=== PATIENT | male | born 1970 | race Caucasian/White ===

== ENCOUNTER → 2017-05-09 10:05 | Outpatient (CLI) | payer OTHER, SELFPAY ==
[2017-05-09 12:31] LABS: ALB/GLOB Ratio 0.7 RATIO (0.9-2.4); AST(SGOT) 16 U/L (15-37); Alanine Aminotransfer ALT/SGPT 21 U/L (12-78); Albumin, Serum 3.3 g/dL (3.4-5.0); Alkaline Phosphatase 69 U/L (45-117); Anion Gap 9 (5-15); BUN 16 mg/dL (7-18); Calcium,Total 8.7 mg/dL (8.5-10.1); Chloride 101 mmol/L (98-107); Cholesterol 150 mg/dL (200); Creatinine, Serum 1.07 mg/dL (0.70-1.30); EST Glomerular Filtration Rate 78 mL/min (>60); Est Glom Filt Rate - Afr Amer 95 mL/min (>60); Globulin 4.6 g/dL (2.2-4.2); Glucose 88 mg/dL (70-110); High Density Lipoprotein 43 mg/dL; Protein, Total 7.9 g/dL (6.4-8.2); Sodium Level 136 mmol/L (136-145); Triglycerides 113 mg/dL; Very Low Density Lipoprotein 23 mg/dL (5-40)
[2017-05-09 12:37] LABS: Absolute Neutrophil Count 11.2 X10^3/uL (2.0-7.7); Basophil# 0.04 X10^3/uL; Basophil% 0.3 % (0-1); Eosinophil# 0.17 X10^3/uL; Eosinophils% 1.2 % (0-5); Hematocrit 41.3 % (40-54); Lymphocyte % 11.4 % (19-41); Mean Corp Hgb Conc 31.5 g/gl (32-36); Mean Corpuscular Hgb 27.5 pg (27.0-32.0); Mean Corpuscular Volume 87.5 fL (80-94); Mean Platelet Vol. 9.7 fl (6.2-12.0); Monocyte# 0.76 X10^3/uL; Monocyte% 5.4 % (0-10); Neutrophil # 11.18 X10^3/uL (2.7-7.7); Neutrophil % 79.4 % (47-70); Platelet Count 447 K/mm3 (150-450); RBC Distribution Width CV 15.5 % (11.6-14.6); RBC Distribution Width SD 49.2 fl (35.1-43.9); Red Blood Count 4.72 M/mm3 (4.6-6.2); White Blood Count 14.1 K/mm3 (4.4-11.0)
[2017-05-09 12:40] LABS: Differential Indicated SCAN CRITERIA MET; POSITIVE COUNT YES; POSITIVE DIFFERENTIAL NO; POSITIVE MORPHOLOGY YES
[2017-05-09 15:33] LABS: Pathologist Review Reviewed
== END ==
PROVIDERS: Family Provider Physician Assistant; PCP Physician Assistant; Visit Provider Internal Medicine Rheumatology
DX: M06.89 Other specified rheumatoid arthritis, multiple sites (principal); G56.01 Carpal tunnel syndrome, right upper limb; M21.40 Flat foot [pes planus] (acquired), unspecified foot; K21.9 Gastro-esophageal reflux disease without esophagitis; E11.9 Type 2 diabetes mellitus without complications; Z79.899 Other long term (current) drug therapy
CPT/HCPCS: 36415; 80053; 80061; 85025

== ENCOUNTER → 2017-08-05 09:38 | Outpatient (CLI) | payer OTHER, SELFPAY ==
[2017-08-05 12:18] LABS: ALB/GLOB Ratio 0.7 RATIO (0.9-2.4); AST(SGOT) 14 U/L (15-37); Alanine Aminotransfer ALT/SGPT 17 U/L (16-61); Albumin, Serum 3.1 g/dL (3.2-5.0); Alkaline Phosphatase 60 U/L (45-117); Anion Gap 7 (5-15); BUN 10 mg/dL (7-18); Calcium,Total 8.9 mg/dL (8.5-10.1); Chloride 104 mmol/L (98-107); Cholesterol 118 mg/dL (200); Creatinine, Serum 0.91 mg/dL (0.70-1.30); EST Glomerular Filtration Rate 94 mL/min (>60); Est Glom Filt Rate - Afr Amer 114 mL/min (>60); Globulin 4.5 g/dL (2.2-4.2); Glucose 97 mg/dL (74-106); High Density Lipoprotein 38 mg/dL; Potassium 3.8 mmol/L (3.5-5.1); Protein, Total 7.6 g/dL (6.4-8.2); Sodium Level 140 mmol/L (136-145); Triglycerides 102 mg/dL; Very Low Density Lipoprotein 20 mg/dL (5-40)
[2017-08-05 12:24] LABS: Hematocrit 40.3 % (40-54); Hemoglobin 12.6 g/dl (13.0-16.5); Mean Corp Hgb Conc 31.3 g/gl (32-36); Mean Corpuscular Hgb 27.6 pg (27.0-32.0); Mean Corpuscular Volume 88.4 fL (80-94); Mean Platelet Vol. 9.7 fl (6.2-12.0); Platelet Count 492 K/mm3 (150-450); RBC Distribution Width CV 15.3 % (11.6-14.6); RBC Distribution Width SD 49.1 fl (35.1-43.9); Red Blood Count 4.56 M/mm3 (4.6-6.2)
[2017-08-05 12:28] LABS: Differential Indicated MANUAL DIFF; POSITIVE COUNT YES; POSITIVE DIFFERENTIAL NO; POSITIVE MORPHOLOGY YES
[2017-08-05 13:34] LABS: Eosinophil 2 % (0-5); Lymphocyte 13 % (19-41); Monocyte 3 % (0-10); Neutrophil-Segmented 80 % (47-70); Platelet Estimate SLT INC (ADEQ); Promyelocyte 2 (0-0); Red Cell Morphology NORM C+C NORMAL (NORM C&C); Total Cells Counted 100 (MANUAL DIFF)
[2017-08-05 13:35] LABS: Absolute Neutrophil Count 10.4 X10^3/uL (2.0-7.7)
[2017-08-05 13:36] LABS: Absolute Lymphocyte Count 1.69 X10^3/ul (0.83-4.51)
[2017-08-06 09:34] LABS: Pathologist Review Reviewed
== END ==
PROVIDERS: Visit Provider Internal Medicine Rheumatology
DX: M06.09 Rheumatoid arthritis without rheumatoid factor, multiple sites (principal); G56.01 Carpal tunnel syndrome, right upper limb; M21.40 Flat foot [pes planus] (acquired), unspecified foot; K21.9 Gastro-esophageal reflux disease without esophagitis; E11.9 Type 2 diabetes mellitus without complications; Z79.899 Other long term (current) drug therapy
CPT/HCPCS: 36415; 80053; 80061; 85025

== ENCOUNTER → 2017-10-07 10:34 | Outpatient (CLI) | payer OTHER, SELFPAY ==
--- NOTE | 2017-10-07 10:37 | RAD_ITS ---
STUDY: X-RAY - RIGHT WRIST REASON FOR EXAM: Wrist pain near thumb for 5 days, no specific injury. TECHNIQUE: 3 view(s) of the wrist were obtained. COMPARISON: None. FINDINGS: Normal visualized distal radius and ulna. Normal radiocarpal articulation. Normal distal radioulnar articulation. Normal carpal bones. Normal carpal articulations. Normal carpometacarpal articulation of the thumb. Normal second through fifth carpometacarpal articulations. Normal visualized metacarpal bones. The soft tissue structures are unremarkable. RAD/Wrist min 3 Views IMPRESSION: Normal x-ray examination of the right wrist. Electronically Signed: Jt Tang MD at 11:17 EDT Tel , Service support ,
== END ==
PROVIDERS: Visit Provider Physician Assistant Surgical
DX: S66.911A Strain of unspecified muscle, fascia and tendon at wrist and hand level, right hand, initial encounter (principal); X58.XXXA Exposure to other specified factors, initial encounter
CPT/HCPCS: 73110

== ENCOUNTER → 2017-10-24 10:23 | Outpatient (CLI) | payer OTHER, SELFPAY ==
[2017-10-24 12:22] LABS: Absolute Lymphocyte Count 1.24 X10^3/ul (0.83-4.51); Absolute Neutrophil Count 3.8 X10^3/uL (2.0-7.7); Basophil# 0.02 X10^3/uL; Basophil% 0.3 % (0-1); Eosinophil# 0.26 X10^3/uL; Eosinophils% 4.3 % (0-5); Hematocrit 42.2 % (40-54); Lymphocyte # 1.24 X10^3/ul (4.0); Lymphocyte % 20.7 % (19-41); Mean Corp Hgb Conc 30.8 g/gl (32-36); Mean Corpuscular Hgb 27.3 pg (27.0-32.0); Mean Corpuscular Volume 88.7 fL (80-94); Mean Platelet Vol. 9.9 fl (6.2-12.0); Monocyte# 0.69 X10^3/uL; Monocyte% 11.5 % (0-10); Neutrophil # 3.75 X10^3/uL (2.7-7.7); Neutrophil % 62.7 % (47-70); Platelet Count 296 K/mm3 (150-450); RBC Distribution Width SD 51.7 fl (35.1-43.9); Red Blood Count 4.76 M/mm3 (4.6-6.2)
[2017-10-24 12:36] LABS: POSITIVE COUNT NO; POSITIVE DIFFERENTIAL NO; POSITIVE MORPHOLOGY NO
[2017-10-24 12:40] LABS: ALB/GLOB Ratio 0.8 RATIO (0.9-2.4); AST(SGOT) 18 U/L (15-37); Alanine Aminotransfer ALT/SGPT 24 U/L (16-61); Albumin, Serum 3.4 g/dL (3.2-5.0); Alkaline Phosphatase 58 U/L (45-117); Anion Gap 8 (5-15); BUN 13 mg/dL (7-18); BUN/Creat Ratio 12.4 RATIO (10-20); Calcium,Total 8.4 mg/dL (8.5-10.1); Chloride 105 mmol/L (98-107); Creatinine, Serum 1.05 mg/dL (0.70-1.30); EST Glomerular Filtration Rate 80 mL/min (>60); Est Glom Filt Rate - Afr Amer 97 mL/min (>60); Globulin 4.1 g/dL (2.2-4.2); Glucose 109 mg/dL (74-106); Protein, Total 7.5 g/dL (6.4-8.2); Sodium Level 141 mmol/L (136-145)
== END ==
PROVIDERS: Visit Provider Internal Medicine Rheumatology
DX: M06.072 Rheumatoid arthritis without rheumatoid factor, left ankle and foot (principal); G56.01 Carpal tunnel syndrome, right upper limb; M21.40 Flat foot [pes planus] (acquired), unspecified foot; K21.9 Gastro-esophageal reflux disease without esophagitis; E11.9 Type 2 diabetes mellitus without complications; Z79.899 Other long term (current) drug therapy
CPT/HCPCS: 36415; 80053; 85025

== ENCOUNTER → 2018-01-21 11:19 | Outpatient (CLI) | payer OTHER, SELFPAY ==
[2018-01-21 13:03] LABS: Differential Indicated MANUAL DIFF; Hematocrit 40.3 % (40-54); Hemoglobin 12.9 g/dl (13.0-16.5); Mean Corpuscular Hgb 28.7 pg (27.0-32.0); Mean Corpuscular Volume 89.6 fL (80-94); Mean Platelet Vol. 9.8 fl (6.2-12.0); POSITIVE COUNT YES; POSITIVE DIFFERENTIAL NO; POSITIVE MORPHOLOGY YES; Platelet Count 401 K/mm3 (150-450); RBC Distribution Width CV 15.4 % (11.6-14.6); RBC Distribution Width SD 49.8 fl (35.1-43.9); White Blood Count 13.5 K/mm3 (4.4-11.0)
[2018-01-21 13:11] LABS: ALB/GLOB Ratio 0.7 RATIO (0.9-2.4); AST(SGOT) 14 U/L (15-37); Alanine Aminotransfer ALT/SGPT 21 U/L (16-61); Alkaline Phosphatase 63 U/L (45-117); Anion Gap 6 (5-15); BUN 14 mg/dL (7-18); BUN/Creat Ratio 13.9 RATIO (10-20); Calcium,Total 8.3 mg/dL (8.5-10.1); Chloride 104 mmol/L (98-107); Creatinine, Serum 1.01 mg/dL (0.70-1.30); EST Glomerular Filtration Rate 84 mL/min (>60); Est Glom Filt Rate - Afr Amer 101 mL/min (>60); Globulin 4.1 g/dL (2.2-4.2); Glucose 101 mg/dL (74-106); Potassium 3.8 mmol/L (3.5-5.1); Protein, Total 7.1 g/dL (6.4-8.2); Sodium Level 136 mmol/L (136-145)
[2018-01-21 13:15] LABS: Eosinophil 1 % (0-5); Lymphocyte 6 % (19-41); Metamyelocyte 2 % (0-1); Monocyte 2 % (0-10); Myelocyte 2 (0-0); Neutrophil-Segmented 87 % (47-70); Total Cells Counted 100 (MANUAL DIFF)
[2018-01-21 13:16] LABS: Absolute Lymphocyte Count 0.81 X10^3/ul (0.83-4.51); Absolute Neutrophil Count 11.7 X10^3/uL (2.0-7.7); Lymphocyte # 0.81 X10^3/ul (4.0); Platelet Estimate ADEQUATE (ADEQ); Red Cell Morphology NORM C+C NORMAL (NORM C&C)
[2018-01-23 11:11] LABS: Pathologist Review Reviewed
== END ==
PROVIDERS: Referring Provider Internal Medicine Rheumatology; Visit Provider Internal Medicine Rheumatology
DX: M06.09 Rheumatoid arthritis without rheumatoid factor, multiple sites (principal); G56.01 Carpal tunnel syndrome, right upper limb; M21.40 Flat foot [pes planus] (acquired), unspecified foot; K21.9 Gastro-esophageal reflux disease without esophagitis; E11.9 Type 2 diabetes mellitus without complications; Z79.899 Other long term (current) drug therapy
CPT/HCPCS: 36415; 80053; 85025

== ENCOUNTER → 2018-03-03 11:11 | Outpatient (CLI) | payer OTHER, SELFPAY ==
[2017-10-07 10:11] VITALS: BMI 26.3
[2018-03-03 12:52] LABS: ALB/GLOB Ratio 0.8 RATIO (0.9-2.4); AST(SGOT) 11 U/L (15-37); Alanine Aminotransfer ALT/SGPT 20 U/L (16-61); Albumin, Serum 3.1 g/dL (3.2-5.0); Alkaline Phosphatase 65 U/L (45-117); Anion Gap 6 (5-15); BUN 20 mg/dL (7-18); BUN/Creat Ratio 17.7 RATIO (10-20); Chloride 104 mmol/L (98-107); Creatinine, Serum 1.13 mg/dL (0.70-1.30); EST Glomerular Filtration Rate 73 mL/min (>60); Est Glom Filt Rate - Afr Amer 89 mL/min (>60); Glucose 170 mg/dL (74-106); Potassium 3.9 mmol/L (3.5-5.1); Protein, Total 7.1 g/dL (6.4-8.2); Sodium Level 137 mmol/L (136-145)
[2018-03-03 13:03] LABS: Differential Indicated MANUAL DIFF; Hematocrit 42.9 % (40-54); Hemoglobin 13.5 g/dl (13.0-16.5); Mean Corp Hgb Conc 31.5 g/gl (32-36); Mean Corpuscular Hgb 28.7 pg (27.0-32.0); Mean Corpuscular Volume 91.3 fL (80-94); Mean Platelet Vol. 9.8 fl (6.2-12.0); POSITIVE COUNT YES; POSITIVE DIFFERENTIAL NO; POSITIVE MORPHOLOGY YES; Platelet Count 426 K/mm3 (150-450); RBC Distribution Width CV 15.3 % (11.6-14.6); White Blood Count 15.3 K/mm3 (4.4-11.0)
[2018-03-03 13:37] LABS: Eosinophil 2 % (0-5); Lymphocyte 7 % (19-41); Metamyelocyte 1 % (0-1); Monocyte 3 % (0-10); Myelocyte 1 (0-0); Neutrophil-Band 1 % (0-5); Neutrophil-Segmented 85 % (47-70); Total Cells Counted 100 (MANUAL DIFF)
[2018-03-03 13:38] LABS: Absolute Neutrophil Count 13.1 X10^3/uL (2.0-7.7); Platelet Estimate ADEQUATE (ADEQ); Red Cell Morphology NORM C+C NORMAL (NORM C&C)
== END ==
PROVIDERS: Referring Provider Internal Medicine Rheumatology; Visit Provider Internal Medicine Rheumatology
DX: M06.09 Rheumatoid arthritis without rheumatoid factor, multiple sites (principal); G56.01 Carpal tunnel syndrome, right upper limb; M21.40 Flat foot [pes planus] (acquired), unspecified foot; K21.9 Gastro-esophageal reflux disease without esophagitis; E11.9 Type 2 diabetes mellitus without complications; Z79.899 Other long term (current) drug therapy
CPT/HCPCS: 36415; 80053; 85025

== ENCOUNTER → 2018-03-09 10:12 | Outpatient (CLI) | payer OTHER, SELFPAY ==
[2017-10-07 10:11] VITALS: BMI 26.3
== END ==
PROVIDERS: Referring Provider Internal Medicine Rheumatology; Visit Provider Internal Medicine Rheumatology
DX: M06.09 Rheumatoid arthritis without rheumatoid factor, multiple sites (principal); G56.01 Carpal tunnel syndrome, right upper limb; M77.11 Lateral epicondylitis, right elbow; M21.40 Flat foot [pes planus] (acquired), unspecified foot; K21.9 Gastro-esophageal reflux disease without esophagitis; E11.9 Type 2 diabetes mellitus without complications; Z79.899 Other long term (current) drug therapy
CPT/HCPCS: 36415

== ENCOUNTER 2018-04-18 06:54 | Emergency (ER) | payer OTHER, SELFPAY ==
[2018-04-18 06:56] VITALS: BP 164/109; PULSE 108; RESP 18; TEMP 36.7; O2SAT 95; BMI 26.6
--- NOTE | 2018-04-18 07:12 | RAD_ITS ---
STUDY: X-RAY - THORACIC SPINE REASON FOR EXAM: Male, 48 years old. Pain TECHNIQUE: 3 view(s) of the thoracic spine were obtained. COMPARISON: None. FINDINGS: There is no evidence of fracture or dislocation in the thoracic spine. The vertebral body heights and disc spaces are well-maintained. There are no significant degenerative changes. RAD/Thoracic Spine 3 Views IMPRESSION: No fracture or dislocation in the thoracic spine. Electronically Signed: Errol Soria, at 8:22 EST Tel , Service support ,
--- NOTE | 2018-04-18 07:19 | ED.VISSUMM ---
- ER Visit Summary Date of Service: 04/18/18 Chief Complaint: Back pain History of Present Illness: The patient is a 48 M with back pain that started yesterday around 2 PM. The patient denies any specific inciting event, but he was at work and does lift 40-50 pound objects above his head. He has pain on the right side of his back starting in his upper T-spine down his entire right side and it radiates down into his right leg. Worse with moving and breathing. He tried massage and heat, but they do not help. He never had this before. No significant associated symptoms. Denies bowel or bladder changes or incontinence. Denies weakness or numbness. Denies any abdominal pain or GI symptoms. Denies any symptoms. Denies chest pain or shortness of breath. Denies any recent illness or fevers. He denies any history of immune compromise or autoimmune disease. He denies any history of vascular disease such as aortic disease. Denies any surgeries. He has RA and osteoarthritis. No other significant medical history. He is a former smoker. Physical Examination: Patient appears uncomfortable. Pressure 164/109 and heart rate 108. Otherwise vitals all normal. Afebrile. Alert and oriented. HEENT exam shows normal inspection. Heart slightly tachycardic but regular. Lungs clear in all bond. Abdomen soft and nontender. No guarding or rebound. Good bowel sounds. Back is diffusely tender to palpation starting from his upper thoracic spine down his entire lumbar spine. The pain is to the right of the spine, and he has no spinal tenderness. Straight leg raise is negative. Good strength and sensation. Strong and equal pulses. Calves soft and supple. Skin appears normal without rash. Test Results: X-rays of the thoracic and lumbar spine are pending. Emergency Department Course and Treatment: Patient likely has myofascial pain. No other symptoms or findings to suggest cardiac, respiratory, vascular, GI, , neurologic, or cutaneous pathologies. He is having fairly significant pain and he is hypertensive, but otherwise his vitals, history, and exam are reassuring. X-rays obtained. Patient was treated with Toradol and Norflex while awaiting results. X-rays show degenerative changes. Nothing acute. Patient is feeling better after treatment. He still has some spasms, but he is able to move and appears objectively more comfortable. No interval new symptoms or worsening symptoms. Patient will be treated as an outpatient. Prescription for Norflex, Motrin, Percocet for breakthrough pain, and Zofran. He received [place] as well as Zofran here. He has a history of GI upset with opioids and will take his medication with Zofran and food. Follow-up with corporate care. Return to work today, no lifting until cleared by corporate care. Treatment Plan: As above Disposition: Discharge Impression: 1. Right thoracic back pain 2. Right lumbar back pain This note was generated with [employer] dictation software. It may contain incorrect words, spelling, and punctuation that were not noted in review of the chart prior to signing ED Disposition - Plan for ED Patient: Chief Complaint: Back Referrals: Care Physician,No Primary [Primary Care Provider] -
[2018-04-18] MEDS: Orphenadrine 60 MG/2 ML Ampul IM (07:39)
[2018-04-18] MEDS: Ketorolac 60 MG/2 ML Vial IM (07:39)
--- NOTE | 2018-04-18 07:43 | RAD_ITS ---
STUDY: X-RAY - LUMBAR SPINE REASON FOR EXAM: Male, 48 years old. Low back pain and muscle spasm. TECHNIQUE: 3 view(s) of the lumbar spine were obtained. COMPARISON: Prior comparable comparison studies are not available for review at this time. FINDINGS: Normal lumbar lordosis. There is no substantial scoliosis. There is a normal alignment of the vertebrae. Normal vertebral bodies and endplates. There is narrowing of the L5-S1 disc space consistent with degenerative disc disease. There is no demonstrated fracture. There is no obvious organomegaly, mass or dilated bowel. No pathologic calcifications are visualized. RAD/Lumbar Spine 2 or 3 Views IMPRESSION: Degenerative disc disease at L5-S1. Electronically Signed: Sary Mejia MD at 8:32 EST , Service support ,
--- NOTE | 2018-04-18 08:47 | ED.DEP ---
ED Disposition - Plan for ED Patient: Chief Complaint: Back Instructions: ED Spasm Back No Trauma Prescriptions: Oxycodone HCl/Acetaminophen [Percocet 5/325] 1 tab PO Q6H PRN PRN 3 Days #12 tab PRN Reason: Pain Ondansetron [Zofran Odt] 4 mg PO Q8H PRN PRN #10 tab PRN Reason: Nausea Ibuprofen [Motrin] 800 mg PO TID PRN PRN #20 tab PRN Reason: Pain Cyclobenzaprine [Flexeril] 10 mg PO TID PRN #20 tab PRN Reason: Muscle Spasm Referrals: Corporate,Care [GROUP OF PHYSICIANS] -
[2018-04-18] MEDS: HYDROcodone Bitartrate/Apap 5/325 Tablet PO (09:09)
[2018-04-18] MEDS: Ondansetron ODT 4 MG Tablet PO (09:10)
== END 2018-04-18 09:12 | disposition home or self-care (01) ==
PROVIDERS: Emergency Provider Emergency Medicine
DX: M54.5 Low back pain (principal); M54.6 Pain in thoracic spine; M06.9 Rheumatoid arthritis, unspecified; M19.90 Unspecified osteoarthritis, unspecified site; Z87.891 Personal history of nicotine dependence; Z79.82 Long term (current) use of aspirin; Z79.899 Other long term (current) drug therapy
CPT/HCPCS: 72072; 72100; 96372; 99282

== ENCOUNTER → 2018-06-02 10:05 | Outpatient (CLI) | payer OTHER, SELFPAY ==
[2018-04-22 11:21] VITALS: BMI 26.6
[2018-06-02 12:31] LABS: Absolute Lymphocyte Count 1.58 X10^3/ul (0.83-4.51); Absolute Neutrophil Count 9.4 X10^3/uL (2.0-7.7); Basophil# 0.04 X10^3/uL; Basophil% 0.3 % (0-1); Eosinophil# 0.07 X10^3/uL; Eosinophils% 0.6 % (0-5); Hematocrit 41.2 % (40-54); Hemoglobin 12.9 g/dl (13.0-16.5); Lymphocyte # 1.58 X10^3/ul (4.0); Lymphocyte % 13.5 % (19-41); Mean Corp Hgb Conc 31.3 g/gl (32-36); Mean Corpuscular Hgb 27.8 pg (27.0-32.0); Mean Corpuscular Volume 88.8 fL (80-94); Monocyte# 0.46 X10^3/uL; Monocyte% 3.9 % (0-10); Neutrophil # 9.36 X10^3/uL (2.7-7.7); Neutrophil % 80.2 % (47-70); POSITIVE COUNT NO; POSITIVE DIFFERENTIAL NO; POSITIVE MORPHOLOGY NO; Platelet Count 448 K/mm3 (150-450); RBC Distribution Width CV 14.7 % (11.6-14.6); RBC Distribution Width SD 46.6 fl (35.1-43.9); Red Blood Count 4.64 M/mm3 (4.6-6.2); White Blood Count 11.7 K/mm3 (4.4-11.0)
[2018-06-02 12:49] LABS: ALB/GLOB Ratio 0.7 RATIO (0.9-2.4); AST(SGOT) 13 U/L (15-37); Alanine Aminotransfer ALT/SGPT 19 U/L (16-61); Albumin, Serum 3.2 g/dL (3.2-5.0); Alkaline Phosphatase 64 U/L (45-117); Anion Gap 11 (5-15); BUN 11 mg/dL (7-18); BUN/Creat Ratio 10.4 RATIO (10-20); Chloride 105 mmol/L (98-107); Creatinine, Serum 1.06 mg/dL (0.70-1.30); EST Glomerular Filtration Rate 79 mL/min (>60); Est Glom Filt Rate - Afr Amer 95 mL/min (>60); Globulin 4.5 g/dL (2.2-4.2); Glucose 149 mg/dL (74-106); Potassium 4.1 mmol/L (3.5-5.1); Protein, Total 7.7 g/dL (6.4-8.2); Sodium Level 141 mmol/L (136-145)
== END ==
PROVIDERS: Referring Provider Internal Medicine Rheumatology; Visit Provider Internal Medicine Rheumatology
DX: M06.9 Rheumatoid arthritis, unspecified (principal); G56.01 Carpal tunnel syndrome, right upper limb; M77.11 Lateral epicondylitis, right elbow; M21.40 Flat foot [pes planus] (acquired), unspecified foot; K21.9 Gastro-esophageal reflux disease without esophagitis; E11.9 Type 2 diabetes mellitus without complications; Z79.899 Other long term (current) drug therapy
CPT/HCPCS: 36415; 80053; 85025

== ENCOUNTER → 2018-08-31 | Outpatient (CLI) | payer OTHER, SELFPAY ==
[2018-04-22 11:21] VITALS: BMI 26.6
[2018-08-31 14:17] LABS: ALB/GLOB Ratio 0.7 RATIO (0.9-2.4); AST(SGOT) 12 U/L (15-37); Alanine Aminotransfer ALT/SGPT 19 U/L (16-61); Albumin, Serum 2.8 g/dL (3.2-5.0); Alkaline Phosphatase 63 U/L (45-117); Anion Gap 10 (5-15); BUN 9 mg/dL (7-18); Calcium,Total 8.4 mg/dL (8.5-10.1); Chloride 105 mmol/L (98-107); EST Glomerular Filtration Rate 84 mL/min (>60); Est Glom Filt Rate - Afr Amer 102 mL/min (>60); Globulin 4.3 g/dL (2.2-4.2); Glucose 170 mg/dL (74-106); Potassium 3.8 mmol/L (3.5-5.1); Protein, Total 7.1 g/dL (6.4-8.2); Sodium Level 140 mmol/L (136-145)
[2018-08-31 14:19] LABS: Absolute Lymphocyte Count 1.44 X10^3/ul (0.83-4.51); Absolute Neutrophil Count 8.1 X10^3/uL (2.0-7.7); Basophil# 0.04 X10^3/uL; Basophil% 0.4 % (0-1); Eosinophil# 0.23 X10^3/uL; Eosinophils% 2.2 % (0-5); Hematocrit 39.4 % (40-54); Hemoglobin 12.6 g/dl (13.0-16.5); Lymphocyte # 1.44 X10^3/ul (4.0); Lymphocyte % 13.7 % (19-41); Mean Corpuscular Hgb 27.3 pg (27.0-32.0); Mean Corpuscular Volume 85.5 fL (80-94); Mean Platelet Vol. 9.3 fl (6.2-12.0); Monocyte% 4.8 % (0-10); Neutrophil # 8.12 X10^3/uL (2.7-7.7); Neutrophil % 77.4 % (47-70); Platelet Count 426 K/mm3 (150-450); Red Blood Count 4.61 M/mm3 (4.6-6.2); White Blood Count 10.5 K/mm3 (4.4-11.0)
[2018-08-31 14:27] LABS: POSITIVE COUNT NO; POSITIVE DIFFERENTIAL NO; POSITIVE MORPHOLOGY NO
== END | disposition home or self-care (01) ==
LOC: MTLAB 11:41
PROVIDERS: Referring Provider Internal Medicine Rheumatology; Visit Provider Internal Medicine Rheumatology
DX: M06.09 Rheumatoid arthritis without rheumatoid factor, multiple sites (principal); G56.01 Carpal tunnel syndrome, right upper limb; M77.11 Lateral epicondylitis, right elbow; M21.40 Flat foot [pes planus] (acquired), unspecified foot; K21.9 Gastro-esophageal reflux disease without esophagitis; E11.9 Type 2 diabetes mellitus without complications; Z79.899 Other long term (current) drug therapy
CPT/HCPCS: 36415; 80053; 85025

== ENCOUNTER → 2018-11-27 | Outpatient (CLI) | payer OTHER, SELFPAY ==
[2018-04-22 11:21] VITALS: BMI 26.6
[2018-11-27 12:35] LABS: Absolute Lymphocyte Count 1.33 X10^3/uL (0.83-4.51); Absolute Neutrophil Count 8.8 X10^3/uL (2.0-7.7); Basophil# 0.08 X10^3/uL; Basophil% 0.7 % (0-1); Eosinophil# 0.19 X10^3/uL; Eosinophils% 1.7 % (0-5); Hematocrit 38.9 % (40-54); Hemoglobin 11.8 g/dL (13.0-16.5); Lymphocyte # 1.33 X10^3/ul (4.0); Lymphocyte % 11.9 % (19-41); Mean Corp Hgb Conc 30.3 g/dL (32-36); Mean Corpuscular Hgb 26.9 pg (27.0-32.0); Mean Corpuscular Volume 88.8 fL (80-94); Mean Platelet Vol. 9.6 fl (6.2-12.0); Monocyte# 0.66 X10^3/uL; Monocyte% 5.9 % (0-10); NRBC Flagged by Analyzer 0 % (0-5); Neutrophil # 8.75 X10^3/uL (2.7-7.7); Neutrophil % 78.3 % (47-70); Platelet Count 458 K/mm3 (150-450); RBC Distribution Width CV 14.7 % (11.6-14.6); RBC Distribution Width SD 47.1 fl (35.1-43.9); Red Blood Count 4.38 M/mm3 (4.6-6.2); White Blood Count 11.2 K/mm3 (4.4-11.0)
[2018-11-27 12:47] LABS: ALB/GLOB Ratio 0.7 RATIO (0.9-2.4); AST(SGOT) 15 U/L (15-37); Alanine Aminotransfer ALT/SGPT 19 U/L (16-61); Albumin, Serum 2.8 g/dL (3.2-5.0); Alkaline Phosphatase 69 U/L (45-117); Anion Gap 9 (5-15); BUN 13 mg/dL (7-18); BUN/Creat Ratio 11.2 RATIO (10-20); Calcium,Total 8.4 mg/dL (8.5-10.1); Chloride 107 mmol/L (98-107); Creatinine, Serum 1.16 mg/dL (0.70-1.30); EST Glomerular Filtration Rate 71 mL/min (>60); Est Glom Filt Rate - Afr Amer 86 mL/min (>60); Globulin 4.2 g/dL (2.2-4.2); Glucose 127 mg/dL (74-106); Potassium 3.8 mmol/L (3.5-5.1); Sodium Level 140 mmol/L (136-145)
== END | disposition home or self-care (01) ==
LOC: MTLAB 10:12
PROVIDERS: Referring Provider Internal Medicine Rheumatology; Visit Provider Internal Medicine Rheumatology
DX: M06.09 Rheumatoid arthritis without rheumatoid factor, multiple sites (principal); G56.01 Carpal tunnel syndrome, right upper limb; M77.11 Lateral epicondylitis, right elbow; M21.40 Flat foot [pes planus] (acquired), unspecified foot; K21.9 Gastro-esophageal reflux disease without esophagitis; E11.9 Type 2 diabetes mellitus without complications; Z79.899 Other long term (current) drug therapy
CPT/HCPCS: 36415; 80053; 85025

== ENCOUNTER → 2018-11-30 | Outpatient (CLI) | payer OTHER, SELFPAY ==
[2018-04-22 11:21] VITALS: BMI 26.6
[2018-11-30 14:01] LABS: CPK Total, Creatine Kinase 36 U/L (39-308)
[2018-12-02 11:26] LABS: Aldolase 4.9 U/L (3.3-10.3)
== END | disposition home or self-care (01) ==
LOC: MTLAB 11:29
PROVIDERS: Referring Provider Internal Medicine Rheumatology; Visit Provider Internal Medicine Rheumatology
DX: M06.09 Rheumatoid arthritis without rheumatoid factor, multiple sites (principal); G56.01 Carpal tunnel syndrome, right upper limb; M77.11 Lateral epicondylitis, right elbow; M21.40 Flat foot [pes planus] (acquired), unspecified foot; K21.9 Gastro-esophageal reflux disease without esophagitis; E11.9 Type 2 diabetes mellitus without complications; Z79.899 Other long term (current) drug therapy
CPT/HCPCS: 36415; 82085; 82550

== ENCOUNTER → 2019-01-19 | Outpatient (CLI) | payer OTHER, SELFPAY ==
[2018-04-22 11:21] VITALS: BMI 26.6
[2019-01-19 10:05] LABS: Absolute Lymphocyte Count 1.66 X10^3/uL (0.83-4.51); Basophil% 0.9 % (0-1); Eosinophil# 0.24 X10^3/uL; Eosinophils% 2.2 % (0-5); Hemoglobin 13.1 g/dL (13.0-16.5); Lymphocyte # 1.66 X10^3/ul (4.0); Lymphocyte % 15.1 % (19-41); Mean Corp Hgb Conc 31.2 g/dL (32-36); Mean Corpuscular Hgb 26.7 pg (27.0-32.0); Mean Corpuscular Volume 85.7 fL (80-94); Mean Platelet Vol. 8.9 fl (6.2-12.0); Monocyte# 0.77 X10^3/uL; NRBC Flagged by Analyzer 0 % (0-5); Neutrophil # 8.01 X10^3/uL (2.7-7.7); Neutrophil % 72.7 % (47-70); Platelet Count 364 K/mm3 (150-450); RBC Distribution Width SD 46.8 fl (35.1-43.9)
[2019-01-19 10:16] LABS: Anion Gap 5 (5-15); BUN 11 mg/dL (7-18); BUN/Creat Ratio 11.8 RATIO (10-20); Calcium,Total 9.2 mg/dL (8.5-10.1); Chloride 105 mmol/L (98-107); Creatinine, Serum 0.93 mg/dL (0.70-1.30); EST Glomerular Filtration Rate 91 mL/min (>60); Est Glom Filt Rate - Afr Amer 111 mL/min (>60); Glucose 131 mg/dL (74-106); Sodium Level 137 mmol/L (136-145)
--- NOTE | 2019-01-19 14:46 | PCM.TILTTABL ---
- Staff Staff: Cammie Lombardo, - - Bhavana Raza - Summary Pre Test Resting HR: 90 - Alert and oriented: Warm and pink Pre Test Resting BP: 140/87 - Alert and oriented: Warm and pink Minimum Test HR: 93 - Alert and oriented: Warm and pink Maximum Test HR: 105 - Unresponsive: Clammy Minimum Test BP: 144/78 - Alert and oriented: Warm and pink Maximum Test BP: 182/93 - Alert and oriented: Warm and pink Reason for Test Termination: Syncope Physician Tilt Table Report - Patient's Physicians Primary Care Physician: ROSETTE NAVARRO [employer] Unit Operator: Martin Chávez Indications/Diagnosis: Syncope Procedure Comments: The patient was brought to the tilt table laboratory and placed supine on the tilt table. The patient was alert and oriented and warm and pink. The baseline heart rate was 90 bpm with a baseline blood pressure 140/87 mmHg. The cardiac rhythm was sinus rhythm. The patient was placed in the 70 degree upright tilt table position for approximately 20 minutes. The patient remained alert and oriented and warm and pink. During that time the minimal heart rate was 91 bpm with a minimal blood pressure of 138/93 mmHg and a maximal heart beat of 101 bpm with a maximal blood pressure of 182/93 mmHg. The cardiac rhythm remained sinus rhythm with a rare PVC. The patient did not lose consciousness. The patient was returned to the supine position. The patient was administered nitroglycerin 0.4 mg sublingual x1. The patient was returned to the 70 degree upright tilt table position for approximately 6 minutes. The patient was initially alert and oriented and warm and pink and subsequently was noted to become unresponsive and clammy appearing. During this time the minimal heart rate was reported at 93 bpm with a minimal blood pressure of 144/78 mmHg. The cardiac rhythm remained sinus rhythm. The patient was returned to the supine position and immediately became alert and oriented and remained warm and pink. The concluding heart rate was 95 bpm with a concluding blood pressure 140/86 mmHg. The patient remained in sinus rhythm. The patient was taken oral intake. The patient was subsequently released from the tilt table laboratory. Summary: 70 degree upright tilt table study status post sublingual nitroglycerin challenge noted for reproducible syncope without significant change with respect to heart rate, blood pressure, or cardiac rhythm. This note was generated using a voice recognition system and there may be incorrect words, spelling or punctuation that were not noted when reviewing the office note prior to saving.
[2019-01-19 14:54] VITALS: BP 140/87; BP 144/78; BP 182/93
== END | disposition home or self-care (01) ==
PROVIDERS: Referring Provider Psychiatry & Neurology Neurology; Visit Provider Psychiatry & Neurology Neurology
DX: R55 Syncope and collapse (principal)
CPT/HCPCS: 36415; 80048; 85025; 93660; J7040; A4216

== ENCOUNTER → 2019-02-22 | Outpatient (CLI) | payer OTHER, SELFPAY ==
[2018-04-22 11:21] VITALS: BMI 26.6
[2019-02-22 12:32] LABS: Absolute Lymphocyte Count 1.88 X10^3/uL (0.83-4.51); Absolute Neutrophil Count 7.8 X10^3/uL (2.0-7.7); Basophil# 0.11 X10^3/uL; Eosinophil# 0.13 X10^3/uL; Eosinophils% 1.2 % (0-5); Hematocrit 44.8 % (40-54); Hemoglobin 13.7 g/dL (13.0-16.5); Lymphocyte # 1.88 X10^3/ul (4.0); Lymphocyte % 17.6 % (19-41); Mean Corp Hgb Conc 30.6 g/dL (32-36); Mean Corpuscular Hgb 26.8 pg (27.0-32.0); Mean Corpuscular Volume 87.5 fL (80-94); Mean Platelet Vol. 9.5 fl (6.2-12.0); Monocyte# 0.47 X10^3/uL; Monocyte% 4.4 % (0-10); NRBC Flagged by Analyzer 0 % (0-5); Neutrophil # 7.81 X10^3/uL (2.7-7.7); Platelet Count 396 K/mm3 (150-450); RBC Distribution Width CV 15.2 % (11.6-14.6); RBC Distribution Width SD 48.1 fl (35.1-43.9); Red Blood Count 5.12 M/mm3 (4.6-6.2); White Blood Count 10.7 K/mm3 (4.4-11.0)
[2019-02-22 13:14] LABS: ALB/GLOB Ratio 0.7 RATIO (0.9-2.4); AST(SGOT) 11 U/L (15-37); Alanine Aminotransfer ALT/SGPT 19 U/L (16-61); Albumin, Serum 3.3 g/dL (3.2-5.0); Alkaline Phosphatase 76 U/L (45-117); Anion Gap 9 (5-15); BUN 12 mg/dL (7-18); BUN/Creat Ratio 11.9 RATIO (10-20); Calcium,Total 9.1 mg/dL (8.5-10.1); Chloride 102 mmol/L (98-107); Creatinine, Serum 1.01 mg/dL (0.70-1.30); EST Glomerular Filtration Rate 83 mL/min (>60); Est Glom Filt Rate - Afr Amer 101 mL/min (>60); Globulin 4.5 g/dL (2.2-4.2); Glucose 190 mg/dL (74-106); Potassium 3.9 mmol/L (3.5-5.1); Protein, Total 7.8 g/dL (6.4-8.2); Sodium Level 138 mmol/L (136-145)
== END | disposition home or self-care (01) ==
LOC: MTLAB 11:04
PROVIDERS: Referring Provider Internal Medicine Rheumatology; Visit Provider Internal Medicine Rheumatology
DX: M06.09 Rheumatoid arthritis without rheumatoid factor, multiple sites (principal); G56.01 Carpal tunnel syndrome, right upper limb; M77.11 Lateral epicondylitis, right elbow; M21.40 Flat foot [pes planus] (acquired), unspecified foot; K21.9 Gastro-esophageal reflux disease without esophagitis; E11.9 Type 2 diabetes mellitus without complications; Z79.899 Other long term (current) drug therapy
CPT/HCPCS: 36415; 80053; 85025

== ENCOUNTER → 2019-03-09 10:28 | Outpatient (CLI) | payer OTHER, SELFPAY ==
[2018-04-22 11:21] VITALS: BMI 26.6
[2019-03-09 12:55] LABS: Erythrocyte Sedimentation Rate 23 mm/hr (0-20)
[2019-03-09 14:01] LABS: HIV - WCH Non-Reactive (Nonreactive); Hepatitis C Antibody Non-Reactive (Nonreactive); Vitamin B12 699 pg/mL (211-911)
[2019-03-09 14:03] LABS: Rheumatoid Factor < 10.0 IU/mL (<15); Thyroid Stim Hormone (TSH) 2.93 uIU/mL (0.358-3.74)
[2019-03-10 12:07] LABS: RNP Ab <0.2 AI (0.0-0.9); Smith Ab <0.2 AI (0.0-0.9)
[2019-03-10 13:21] LABS: ANTINUCLEAR ANTIBODIES DIRECT Negative (Negative)
[2019-03-11 01:53] LABS: Rapid Plasmin Reagin (RPR) NONREACTIVE (NONREACTIVE)
[2019-03-16 20:07] LABS: Immunoglobulin A 372 mg/dL (90-386); Immunoglobulin G 1328 mg/dL (700-1600); Immunoglobulin M 169 mg/dL (20-172); PROEL- Albumin 3.5 g/dL (2.9-4.4); PROEL- Alpha-1 Globulin 0.2 g/dL (0.0-0.4); PROEL- Alpha-2 Globulin 0.8 g/dL (0.4-1.0); PROEL- Beta Globulin 1.2 g/dL (0.7-1.3); PROEL- Gamma Globulin 1.3 g/dL (0.4-1.8); PROEL- Globulin, Total 3.5 g/dL (2.2-3.9)
[2019-03-17 12:07] LABS: Arsenic 7245 7 ug/L (2-23); Lead, Blood 1 ug/dL (0-4)
== END ==
PROVIDERS: Referring Provider Psychiatry & Neurology Neurology; Visit Provider Psychiatry & Neurology Neurology
DX: G12.20 Motor neuron disease, unspecified (principal); G82.22 Paraplegia, incomplete; G82.52 Quadriplegia, C1-C4 incomplete; R53.83 Other fatigue; R73.9 Hyperglycemia, unspecified
CPT/HCPCS: 36415; 82175; 82607; 82746; 82784; 83036; 83655; 83825; 84165; 84443; 85652; 86038; 86235; 86334; 86431; 86592; 86703; 86803

== ENCOUNTER 2019-05-22 17:37 | Emergency (ER) | payer OTHER, SELFPAY ==
[2018-04-22 11:21] VITALS: BMI 26.6
[2019-05-22 17:38] VITALS: BP 134/30; PULSE 94; RESP 16; TEMP 36.7; O2SAT 95; BMI 26.6
[2019-05-22 18:37] VITALS: RESP 16
--- NOTE | 2019-05-22 18:46 | CT_ITS ---
STUDY: CT BRAIN WITHOUT CONTRAST REASON FOR EXAM: Male, 49 years old. SLURRED SPEECH, FREQUENT FALLS, WEAKNESS, DIFF WALKING SINCE OCTOBER, SEEN NEURO AND PRIMARY DOC RADIATION DOSAGE (If Supplied By Facility): CTDIvol = ( 44.99 ) mGy, DLP = ( 779.24 ) mGycm TECHNIQUE: Transaxial CT imaging of the brain was performed without administration of intravenous contrast material. Individualized dose optimization techniques were used for this CT. COMPARISON: No relevant priors. FINDINGS: Normal soft tissue structures. Normal calvarium. Normal size ventricles and extra-axial spaces for the patient''s age. Normal white matter tracts of the cerebral hemispheres. Normal basal ganglia and thalami. Normal brainstem. Normal cerebellum. There is no intracranial hemorrhage. There are no findings of an acute ischemic infarction. 6 mm oval area of slightly increased attenuation along the left side of the anterior aspect of the falx cerebri most consistent with a meningioma. Correlation MRI with contrast would be useful to confirm. Normal visualized paranasal sinuses. CT/Brain/Head without Contrast IMPRESSION: 1. No acute abnormality. 2. Suspect 6 mm meningioma along the left side of the anterior aspect of the falx cerebri and correlation with MRI would be useful to confirm. Electronically Signed: Jacek Piper MD at 19:49 EST Tel , Service support ,
--- NOTE | 2019-05-22 18:46 | EKG12_ITS ---
Test Reason : NEURO Blood Pressure : / mmHG Vent. Rate : 091 BPM Atrial Rate : 091 BPM P-R Int : 142 ms QRS Dur : 094 ms QT Int : 376 ms P-R-T Axes : 035 -34 031 degrees QTc Int : 462 ms Normal sinus rhythm Left axis deviation Abnormal ECG Confirmed by EMIGDIO SMITH, RITESH ([id number]), loan expeditor NICKOLAS SEVERINO ([id number]) on 05/27/2019 2:55:56 PM Referred By: ZACH Confirmed By:LUPE BEAL MD
[2019-05-22 18:59] VITALS: BMI 27.0
[2019-05-22 19:09] LABS: Absolute Lymphocyte Count 1.46 X10^3/uL (0.83-4.51); Absolute Neutrophil Count 7.7 X10^3/uL (2.0-7.7); Basophil# 0.05 X10^3/uL; Basophil% 0.5 % (0-1); Eosinophil# 0.14 X10^3/uL; Eosinophils% 1.4 % (0-5); Hematocrit 40.1 % (40-54); Hemoglobin 12.4 g/dL (13.0-16.5); Lymphocyte # 1.46 X10^3/ul (4.0); Lymphocyte % 14.9 % (19-41); Mean Corp Hgb Conc 30.9 g/dL (32-36); Mean Corpuscular Hgb 26.1 pg (27.0-32.0); Mean Corpuscular Volume 84.4 fL (80-94); Mean Platelet Vol. 8.7 fl (6.2-12.0); Monocyte# 0.19 X10^3/uL; Monocyte% 1.9 % (0-10); NRBC Flagged by Analyzer 0 % (0-5); Neutrophil # 7.67 X10^3/uL (2.7-7.7); Neutrophil % 78.6 % (47-70); Platelet Count 353 K/mm3 (150-450); RBC Distribution Width CV 15.6 % (11.6-14.6); RBC Distribution Width SD 47.2 fl (35.1-43.9); Red Blood Count 4.75 M/mm3 (4.6-6.2); White Blood Count 9.8 K/mm3 (4.4-11.0)
[2019-05-22 19:11] LABS: Bedside Glucose 173 mg/dL (70-110)
--- NOTE | 2019-05-22 19:12 | ED.DCSUM_ITS ---
History of Present Illness Chief Complaint: Neuro S/Sx Informant: Patient, Family - mother, Significant Other Onset: Month(s) Context: Gradual Onset Timing: Continuous, Waxes and wanes Narrative: Patient is a 49-year-old male with history of rheumatoid arthritis, depression, diabetes and GERD presenting with progression of neurologic symptoms. About 6 months ago in September or October he started having episodes of syncope as well as intermittent episodes of slurred speech. Since April 12 patient had a significant progression of his symptoms. He is had multiple falls due to unsteadiness, choking with eating, shortness of breath especially with deep breathing and an unsteady gait. Patient had a relatively normal MRI which the girlfriend brought in on 12/17/2018. Patient has reportedly been very stubborn and has not followed up. He has seen Dr. Coffey neurology. They called the PCP yesterday, Dr. Navarro with [facility], who recommended he come to the emergency room for further evaluation. Patient finally consented today. Patient did have a fall last night when he was walking around his truck. He states his leg just came out from under him. He did hit his head. He had no loss of consciousness. Patient slurred speech is now constant and this is been going on for the past month. He has a hard time speaking on the phone because of his speech. He does have a slight tremor of his hands. Family is concerned about ALS. Past Medical History - Allergies and Home Meds Allergies/Adverse Reactions: Allergies codeine Allergy (Verified 05/22/19 17:40) Upset Stomach Primary Care Physician: ROSETTE NAVARRO [Other] Past Medical History: - - Rheumatoid arthritis, depression, diabetes mellitus, GERD Surgical History: noncontributory Lives: Alone Smoking Status: Former smoker Review of Systems General: Reports: Malaise. Denies: Chills, Fever, Sweats Eyes: Denies: Visual changes - bilaterally, Diplopia ENT: Denies: Rhinorrhea, Sore throat Cardiovascular: Denies: Chest pain, Palpitations Respiratory: Reports: Dyspnea. Denies: Cough, Dyspnea on exertion Gastrointestinal: Denies: Abdominal pain, Nausea, Vomiting, Diarrhea, Melena, Hematochezia Genitourinary: Denies: Dysuria, Hematuria, Frequency Musculoskeletal: Denies: Back pain, Extremity Pain Skin: Denies: Rash, Wounds Neurological: Reports: Weakness, - - Difficulty ambulating, slurred speech. Denies: Headache, Numbness Physical Exam Vital Signs/Narrative: Vital Signs Temp Pulse Resp BP Pulse Ox 05/22/19 18:37 16 05/22/19 17:38 98.1 F 94 16 134/30 H 95 Inital Vital Signs reviewed: Yes General: Well nourished, Well developed, No Acute Distress Head: Normocephalic, Atraumatic Eyes: Perrl, EOMI ENT: Moist mucous membranes, No rhinorrhea, TM's clear Neck: Supple, Nontender Cardiovascular: Regular rate, Regular rhythm, No murmurs Respiratory: No distress, CTA bilaterally, Chest nontender Abdomen: Soft, Nontender, Nondistended, Normal bowel sounds Back: Nontender, Normal Inspection Extremities: Nontender, No edema Skin: Normal color, No rash Neurological: Alert, Oriented x3, Normal Strength, Normal Sensation, - - Gait is slightly rigid however there is no wide-based or shuffling. There is not appear to be a foot drop. Patient does have slurred speech on my exam but no other cranial nerve deficits. No focal weakness. Negative for: Parasthesia Psychological: Normal affect, Normal Mood Diagnostic/Tx/Re-eval Chest X-Ray - ED: 2 View, Read by ED Physician, Read by Radiologist, No Acute Disease Clinical Impression(s) from Imaging Studies Brain CT 05/22/19 18:46 IMPRESSION: 1. No acute abnormality. 2. Suspect 6 mm meningioma along the left side of the anterior aspect of the falx cerebri and correlation with MRI would be useful to confirm. Electronically Signed: Jacek Piper MD at 19:49 EST Tel , Service support , Chest X-Ray 05/22/19 19:18 IMPRESSION: Normal x-ray examination of the chest. Electronically Signed: Jacek Piper MD at 19:51 EST Tel , Service support , Laboratory Data 05/22/19 05/22/19 05/22/19 18:59 19:00 19:00 WBC 9.8 RBC 4.75 Hgb 12.4 L Hct 40.1 MCV 84.4 MCH 26.1 L MCHC 30.9 L RDW Std Deviation 47.2 H RDW Coeff of Rosemarie 15.6 H Plt Count 353 MPV 8.7 Immature Gran % (Auto) 2.700 H Neut % (Auto) 78.6 H Lymph % (Auto) 14.9 L [place] % (Auto) 1.9 Eos % (Auto) 1.4 Baso % (Auto) 0.5 Absolute Neuts (auto) 7.7 Absolute Lymphs (auto) 1.46 Nucleated RBC % 0 Sodium 138 Potassium 3.7 Chloride 107 Carbon Dioxide 28.0 Anion Gap 3 L BUN 12 Creatinine 1.01 Estim Creat Clear Calc 78.96 Est GFR (MDRD) Af Amer 100 Est GFR (MDRD) Non-Af 83 BUN/Creatinine Ratio 11.9 Glucose 166 H Calcium 8.5 Urine Color Urine Clarity Urine pH Ur Specific [place] Urine Protein Urine Glucose (UA) Urine Ketones Urine Occult Blood Urine Nitrite Urine Bilirubin Urine Urobilinogen Ur Leukocyte Esterase Urine RBC Urine WBC Ur Squamous Epith Cells Urine Bacteria Urine Mucus POC Glucose 173 H 05/22/19 19:05 WBC RBC Hgb Hct MCV MCH MCHC RDW Std Deviation RDW Coeff of Rosemarie Plt Count MPV Immature Gran % (Auto) Neut % (Auto) Lymph % (Auto) [place] % (Auto) Eos % (Auto) Baso % (Auto) Absolute Neuts (auto) Absolute Lymphs (auto) Nucleated RBC % Sodium Potassium Chloride Carbon Dioxide Anion Gap BUN Creatinine Estim Creat Clear Calc Est GFR (MDRD) Af Amer Est GFR (MDRD) Non-Af BUN/Creatinine Ratio Glucose Calcium Urine Color Yellow Urine Clarity Clear Urine pH 6.0 Ur Specific [place] 1.010 Urine Protein Negative Urine Glucose (UA) Normal Urine Ketones Negative Urine Occult Blood 10 H Urine Nitrite Negative Urine Bilirubin Negative Urine Urobilinogen Normal Ur Leukocyte Esterase Negative Urine RBC 0-5 SEEN Urine WBC 0 SEEN Ur Squamous Epith Cells 0 SEEN Urine Bacteria 0 SEEN Urine Mucus 0 SEEN POC Glucose - Rhythm Strip Rhythm Strip: Sinus Rhythm Rate: 91 Ectopy: None - EKG Initial EKG Interpretation: Sinus Rhythm, - - Normal sinus rhythm at a rate of 91 Normal intervals Left axis deviation Normal ST segments - Medical Decision Making Patient is evaluated for progressive of weakness, difficulty ambulating and slurred speech. He has had his current symptoms for about a month but they have been progressing. Do not think this is an acute stroke. I am concerned about some type of progressive neurologic disorder. He has associated shortness of breath however he is not hypoxic. He also reports choking with eating concerning for some dysphasia. Work-up including a head CT, CBC, BMP and urinalysis is largely unremarkable. Patient and family would like admission for further neurologic evaluation. I did discuss with our hospitalist who was concerned that he would need a higher level neurologic care than we could provide through telaneurology, and request transfer. Patient is amenable to transfer and discussed with at [facility]. He accepts the patient to the medicine service. Patient is stable at time of disposition. He is agreeable with plan. ED Disposition - Plan for ED Patient: Disposition: [facility] Diagnosis: Slurred speech, Unsteady gait, Falls Referrals: ROSETTE NAVARRO [Other]
[2019-05-22 19:14] VITALS: BP 123/81; PULSE 80; RESP 16; O2SAT 93
[2019-05-22 19:15] LABS: Bacteria 0 SEEN /hpf (None Seen); Mucous, Urine 0 SEEN /hpf (<or=2+); Squamous Epithelial Cells - UA 0 SEEN /hpf (0-5); White Blood Cells 0 SEEN /hpf (0-5)
--- NOTE | 2019-05-22 19:18 | RAD_ITS ---
STUDY: X-RAY CHEST REASON FOR EXAM: Male, 49 years old. CP WITH DEEP INSPIRATION, SLURRED SPEECH, FREQUENT FALLS, WEAKNESS, DIFFICULTY WALKING AND SWALLOWING SINCE OCTOBER TECHNIQUE: PA and lateral views of the chest. COMPARISON: 03/27/2016 FINDINGS: The lungs are clear and expanded. There is no demonstrated pleural abnormality. Normal size heart. Normal mediastinum and toni. Normal visualized pulmonary arteries. Normal visualized aortic arch and descending thoracic aorta. Normal visualized thoracic spine. Normal visualized ribs, clavicles, and shoulders. There is no demonstrated abnormality of the visualized soft tissue structures of the upper abdomen. RAD/Chest PA and Lateral IMPRESSION: Normal x-ray examination of the chest. Electronically Signed: Jacek Piper MD at 19:51 EST Tel , Service support ,
[2019-05-22 19:25] LABS: Color, Urine Yellow (Yellow); Glucose, Dipstick Normal (Normal); Ketone-Dipstick Negative (Negative); Leukocyte Esterase-Dipstick Negative /ul (Negative); Nitrite-Dipstick Negative (Negative); Occult Blood-Urine 10 /ul (Negative); Protein-Dipstick Negative (Negative); Urine Bilirubin Dipstick Negative (Negative); Urine Clarity Clear (Clear); Urine Urobilinogen Normal (Normal)
[2019-05-22 19:26] LABS: Anion Gap 3 (5-15); BUN 12 mg/dL (7-18); BUN/Creat Ratio 11.9 RATIO (10-20); Calcium,Total 8.5 mg/dL (8.5-10.1); Chloride 107 mmol/L (98-107); Creatinine, Serum 1.01 mg/dL (0.70-1.30); EST Glomerular Filtration Rate 83 mL/min (>60); Est Glom Filt Rate - Afr Amer 100 mL/min (>60); Estimated Creatinine Clearance 78.96 ml/min; Glucose 166 mg/dL (74-106); Potassium 3.7 mmol/L (3.5-5.1); Sodium Level 138 mmol/L (136-145)
[2019-05-22 19:34] LABS: Red Blood Cells-Urine 0-5 SEEN /hpf (0-5)
[2019-05-22 20:00] VITALS: BP 117/80; PULSE 84; RESP 14; O2SAT 96
[2019-05-22 21:23] VITALS: BP 127/82; PULSE 80; RESP 16; O2SAT 98
--- NOTE | 2019-05-22 21:48 | NURSING ---
ACCEPTED TO [facility] [phone] REPORT
[2019-05-22 22:04] VITALS: BP 128/89; PULSE 84; RESP 16; O2SAT 98
== END 2019-05-22 22:32 | disposition short-term general hospital (02) ==
PROVIDERS: Emergency Provider Emergency Medicine
DX: R47.81 Slurred speech (principal); R26.2 Difficulty in walking, not elsewhere classified; M06.9 Rheumatoid arthritis, unspecified; E11.9 Type 2 diabetes mellitus without complications; K21.9 Gastro-esophageal reflux disease without esophagitis; F32.9 Major depressive disorder, single episode, unspecified; Z79.82 Long term (current) use of aspirin; Z79.899 Other long term (current) drug therapy; Z87.891 Personal history of nicotine dependence
CPT/HCPCS: 70450; 71046; 80048; 81001; 82962; 85025; 93005; 99283; A4216

== ENCOUNTER → 2019-07-27 | Outpatient (CLI) | payer OTHER, SELFPAY ==
[2019-07-27 14:46] LABS: Absolute Lymphocyte Count 2.21 X10^3/uL (0.83-4.51); Absolute Neutrophil Count 9.5 X10^3/uL (2.0-7.7); Basophil# 0.09 X10^3/uL; Basophil% 0.7 % (0-1); Eosinophil# 0.27 X10^3/uL; Eosinophils% 2.1 % (0-5); Hematocrit 43.2 % (40-54); Hemoglobin 13.3 g/dL (13.0-16.5); Lymphocyte # 2.21 X10^3/ul (4.0); Lymphocyte % 17.3 % (19-41); Mean Corp Hgb Conc 30.8 g/dL (32-36); Mean Corpuscular Hgb 26.2 pg (27.0-32.0); Mean Corpuscular Volume 85.2 fL (80-94); Mean Platelet Vol. 10.4 fl (6.2-12.0); Monocyte# 0.61 X10^3/uL; Monocyte% 4.8 % (0-10); NRBC Flagged by Analyzer 0 % (0-5); Neutrophil # 9.46 X10^3/uL (2.7-7.7); Neutrophil % 73.8 % (47-70); Platelet Count 413 K/mm3 (150-450); RBC Distribution Width SD 46.5 fl (35.1-43.9); Red Blood Count 5.07 M/mm3 (4.6-6.2); White Blood Count 12.8 K/mm3 (4.4-11.0)
[2019-07-27 14:59] LABS: ALB/GLOB Ratio 0.8 RATIO (0.9-2.4); AST(SGOT) 17 U/L (15-37); Alanine Aminotransfer ALT/SGPT 21 U/L (16-61); Albumin, Serum 3.3 g/dL (3.2-5.0); Alkaline Phosphatase 69 U/L (45-117); Anion Gap 5 (5-15); BUN 13 mg/dL (7-18); BUN/Creat Ratio 13.4 RATIO (10-20); Chloride 109 mmol/L (98-107); Creatinine, Serum 0.97 mg/dL (0.70-1.30); EST Glomerular Filtration Rate 87 mL/min (>60); Est Glom Filt Rate - Afr Amer 106 mL/min (>60); Globulin 4.2 g/dL (2.2-4.2); Glucose 112 mg/dL (74-106); Potassium 3.8 mmol/L (3.5-5.1); Protein, Total 7.5 g/dL (6.4-8.2); Sodium Level 142 mmol/L (136-145)
== END | disposition home or self-care (01) ==
LOC: MTLAB 13:04
PROVIDERS: Referring Provider Internal Medicine Rheumatology; Visit Provider Internal Medicine Rheumatology
DX: M06.042 Rheumatoid arthritis without rheumatoid factor, left hand (principal); G56.01 Carpal tunnel syndrome, right upper limb; M77.11 Lateral epicondylitis, right elbow; M21.40 Flat foot [pes planus] (acquired), unspecified foot; K21.9 Gastro-esophageal reflux disease without esophagitis; E11.9 Type 2 diabetes mellitus without complications; G12.20 Motor neuron disease, unspecified; Z79.899 Other long term (current) drug therapy
CPT/HCPCS: 36415; 80053; 85025

== ENCOUNTER → 2019-10-07 | Outpatient (CLI) | payer OTHER, SELFPAY ==
[2018-04-22 11:21] VITALS: BMI 26.6
[2019-09-15 05:39] VITALS: BMI 26.3
--- NOTE | 2019-10-07 14:28 | SP.MBSS_ITS ---
Primary/Secondary Diagnosis: oropharyngeal dysphagia (R13.12) Referring Physician: Dr. Rios Faulkner Medical History: Pt is a 49/M with past medical history of diabetes, headaches, arthritis, difficulty balancing, fatigue, limb weakness, neck pain, shoulder pain, and recently diagnosed ALS (May 2019). Patient currently receiving home health speech therapy. Reason for Referral: difficulty swallowing with choking Current Diet: regular textures/thin liquids Dentition: natural teeth Mental Status: WFL Respiratory Status: oxygenating on room air Previous Modified Barium Swallow: N/A Study Findings: This patient was seen for a Modified Barium Swallow on 10/07/2019. The following consistencies were presented to this patient for analysis of oropharyngeal swallow function: thin liquid, pudding, and a cookie. Oral Phase Labial seal: interlabial escape, no progression to anterior lip Tongue control during bolus hold: cohesive bolus between tongue to palatal seal Bolus preparation/mastication: slow prolonged chewing/mashing with complete recollection Bolus transport/lingual motion: slowed tongue motion Oral residue: trace residue lining oral structures Pharyngeal Phase Initiation of pharyngeal swallow: bolus head at posterior laryngeal surface of epiglottis Soft palate elevation: no bolus between soft palate and pharyngeal wall Laryngeal elevation: partial superior movement of thyroid cartilage/partial approximation of arytenoids cartilage to epiglottic petiole Anterior hyoid excursion: partial anterior movement Epiglottic movement: complete inversion Laryngeal vestibule closure at height of swallow: incomplete; narrow column of air/contrast in laryngeal vestibule Pharyngeal stripping wave: present diminished Pharyngoesophageal segment opening: partial distension and partial duration; partial obstruction of flow Tongue base retraction: narrow column of contrast between tongue base and posterior pharyngeal wall Pharyngeal residue: collection of residue within or on pharyngeal structures Esophageal Phase *Could not view. Penetration-Aspiration Scale 1 = does not enter airway 2 = enters airway/above vocal folds/ejected 3 = enters airway/above vocal folds/not ejected 4 = enters airway/contacts vocal folds/ejected 5 = enters airway/contacts vocal folds/not ejected 6 = enters airway/below vocal folds/ejected 7 = enters airway/below vocal folds/not ejected despite effort 8 = enters airway/below vocal folds/no effort Penetration-Aspiration Scale Score: 1) Thin liquids via teaspoon = 1 2) Thin liquids via teaspoon = 2 3) Thin liquids via small single sip from cup = 2 *dry swallow following this trial to clear pharyngeal residue in valleculae 4) Thin liquids via large single sip from cup = 4 5) Thin liquids via sequential sips via cup = 4 6) [place] via small single sip from cup = 1 *difficult to decipher due to imaging shadow 7) [place] thick liquid via large single sip from cup = 2 8) Honey thick liquid via small single sip from cup = 1 9) Honey thick liquid liseth large single sip from cup = 1 10 ) pudding = 1 11) cookie = 1 12) Thin liquid via small single sip via straw = 1 *Flash penetration without significance 13) Thin liquid via sequential sips from straw = 2 14) Thin liquid via large single sip from cup = 4 15) Thin liquid via large single sip via cup with chin tuck = 1 Diagnosis: Moderate oropharyngeal dysphagia (R13.12) Impression: The patient was found to have penetration to the vocal cords with ejection when taking larger single and sequential sips. No aspiration found on this evaluation at this current date and time. With adjustment in bolus size, the patient showed improvement across all consistencies trialed. Given recent diagnosis of ALS, it can be expected that patient may have fluctuating swallow function given various factors (i.e fatigue). It can also be presumed that swallow function may decline with disease progression. It is recommended patient complete repeat MBS studies at regular intervals, every 4-6 weeks or with changes in swallow function. Recommendations Diet: mechanical soft textures/thin liquids (chin tuck) Compensatory Strategies Recommended: distant supervision during meals, chin tuck with all liquids, small bites/sips one at a time, and sit upright for all PO intake. Need for Skilled Speech Therapy Services: Skilled ST intervention recommended for continued assessment of diet tolerance, compensatory strategy training, and education regarding MBS study results. ADDITIONAL COMMENTS/RECOMMENDATIONS: Education completed with the patient following MBS study with patient verbalizing understanding and agreement. Melissa Garcia MA, [facility] [address] [place], [place] [id number] [email or web address]
== END | disposition home or self-care (01) ==
LOC: RAD 12:52
PROVIDERS: PCP Family Medicine; Referring Provider Internal Medicine Critical Care Medicine; Visit Provider Internal Medicine Critical Care Medicine
DX: R13.10 Dysphagia, unspecified (principal); M62.81 Muscle weakness (generalized)
CPT/HCPCS: 74230; 92611

== ENCOUNTER → 2019-10-22 | Outpatient (CLI) | payer MEDICARE, OTHER, SELFPAY ==
[2019-09-15 05:39] VITALS: BMI 26.3
[2019-10-22 17:41] LABS: ALB/GLOB Ratio 0.8 RATIO (0.9-2.4); AST(SGOT) 14 U/L (15-37); Alanine Aminotransfer ALT/SGPT 25 U/L (16-61); Albumin, Serum 3.2 g/dL (3.2-5.0); Alkaline Phosphatase 65 U/L (45-117); Anion Gap 7 (5-15); BUN 10 mg/dL (7-18); Calcium,Total 8.6 mg/dL (8.5-10.1); Chloride 106 mmol/L (98-107); Creatinine, Serum 0.91 mg/dL (0.70-1.30); EST Glomerular Filtration Rate 94 mL/min (>60); Est Glom Filt Rate - Afr Amer 114 mL/min (>60); Globulin 3.9 g/dL (2.2-4.2); Glucose 134 mg/dL (74-106); Potassium 3.7 mmol/L (3.5-5.1); Protein, Total 7.1 g/dL (6.4-8.2); Sodium Level 140 mmol/L (136-145)
[2019-10-22 17:57] LABS: Absolute Lymphocyte Count 2.07 X10^3/uL (0.83-4.51); Absolute Neutrophil Count 9.5 X10^3/uL (2.0-7.7); Basophil# 0.08 X10^3/uL; Basophil% 0.6 % (0-1); Eosinophil# 0.26 X10^3/uL; Eosinophils% 2.1 % (0-5); Hematocrit 42.5 % (40-54); Lymphocyte # 2.07 X10^3/ul (4.0); Lymphocyte % 16.4 % (19-41); Mean Corp Hgb Conc 30.6 g/dL (32-36); Mean Corpuscular Hgb 27.8 pg (27.0-32.0); Mean Platelet Vol. 9.6 fl (6.2-12.0); Monocyte# 0.48 X10^3/uL; Monocyte% 3.8 % (0-10); NRBC Flagged by Analyzer 0 % (0-5); Neutrophil # 9.54 X10^3/uL (2.7-7.7); Neutrophil % 75.3 % (47-70); Platelet Count 451 K/mm3 (150-450); RBC Distribution Width CV 15.1 % (11.6-14.6); RBC Distribution Width SD 49.4 fl (35.1-43.9); Red Blood Count 4.67 M/mm3 (4.6-6.2); White Blood Count 12.7 K/mm3 (4.4-11.0)
== END | disposition home or self-care (01) ==
LOC: MTLAB 14:33
PROVIDERS: PCP Family Medicine; Referring Provider Internal Medicine Rheumatology; Visit Provider Internal Medicine Rheumatology
DX: M06.032 Rheumatoid arthritis without rheumatoid factor, left wrist (principal); M18.0 Bilateral primary osteoarthritis of first carpometacarpal joints; G56.01 Carpal tunnel syndrome, right upper limb; M77.11 Lateral epicondylitis, right elbow; M21.40 Flat foot [pes planus] (acquired), unspecified foot; K21.9 Gastro-esophageal reflux disease without esophagitis; E11.9 Type 2 diabetes mellitus without complications; G12.21 Amyotrophic lateral sclerosis; Z79.899 Other long term (current) drug therapy
CPT/HCPCS: 36415; 80053; 85025

== ENCOUNTER → 2019-12-06 | Outpatient (CLI) | payer OTHER, MEDICARE, SELFPAY ==
[2019-09-15 05:39] VITALS: BMI 26.3
--- NOTE | 2019-12-06 13:30 | SP.MBSS_ITS ---
PRIMARY / SECONDARY DIAGNOSIS: dysphagia (R13.10) CURRENT DIET (SOLIDS): regular textures (IDDSI: 7) CURRENT DIET (LIQUIDS): thin liquid diets (IDDSI: 0) DENTITION: natural upper / lower dentition MENTAL STATUS: sufficient for participation RESPIRATORY STATUS: O2 via room air REASON FOR REFERRAL: The Patient is a 49 year old male referred for a modified barium swallow (MBS) study to objectively assess the Patients oropharyngeal swallow function under fluoroscopy secondary to the diagnosis of amyotrophic lateral sclerosis MEDICAL HISTORY: Amyotrophic lateral sclerosis, type II diabetes mellitus, anxiety, depression, arthritis, shoulder pain, fatigue, headaches, PREVIOUS MODIFIED BARIUM SWALLOW STUDY RESULTS: 10/07/2019 MBS revealed mild to moderate oropharyngeal dysphagia (DSRS: 3; SPS: 4) with deep penetration without complete ejection of thin liquids ASSESSMENT PARAMETERS: The Patient participated in a Modified Barium Swallow (MBS) study on 12/06/2019. This study was recorded in the lateral view and images were sent to PACs for storage. Scoring was completed through each trial using the 8- point Penetration-Aspiration Scale (PAS) and summarized via the Modified Barium Swallow Impairment Profile (MBSImP) and the Bolus Residue Scale (BRS), with severity scoring through the Dysphagia Severity Rating Scale (DSRS) and the Anali ALS Severity Scale (ALSSS), and recommended diet textures through the International Dysphagia Diet Standardization Initiative (IDDSI) RESULTS OF THE EVALUATION: The Patient presents with mild to moderate oropharyngeal dysphagia (DSRS: 3; ALSSS: 6) with intermittent shallow and deep penetration of thin liquids secondary to the diagnosis of amyotrophic lateral sclerosis OBJECTIVE ASSESSMENT OF SWALLOW FUNCTION (QUANTITATIVE ? PER TRIAL): PENETRATION / ASPIRATION SCALE (LOZADA): 1 = does not enter airway 2 = enters airway/above vocal folds/ejected 3 = enters airway/above vocal folds/not ejected 4 = enters airway/contacts vocal folds/ejected 5 = enters airway/contacts vocal folds/not ejected 6 = enters airway/below vocal folds/ejected 7 = enters airway/below vocal folds/not ejected despite effort 8 = enters airway/below vocal folds/no effort PENETRATION / ASPIRATION SCALE (SCORE): Thin liquid - 5 mL tsp.: 5 Thin liquids via cup (single sip): 2 Thin liquids via cup (single sip): 1 Thin liquids via straw (single sip): 3 Thin liquids via straw (single sip): 2 Pudding via spoon: 1 Thin liquids via straw (single sip): 1 Regular textured cookie: 1 Thin liquids via straw (single sip): 1 Thin liquids via straw (single sip): 1 Thin liquids via straw (single sip): 2 Thin liquids via straw (chin tuck): 1 Thin liquids via straw (chin tuck): 2 Thin liquids via straw (chin tuck): 2 Thin liquids via straw (chin tuck): 1 OBJECTIVE ASSESSMENT OF SWALLOW FUNCTION (QUANTITATIVE ? AGGREGATE): MODIFIED BARIUM SWALLOW IMPAIRMENT PROFILE (MBSImP) LABIAL SEAL: 3 (of 4) escape progressing to mid-chin TONGUE CONTROL: 2 (of 3) posterior escape < 50% BOLUS PREPARATION / MASTICATION: 2 (of 3) disorganized chewing; pieces unchewed BOLUS TRANSPORT / LINGUAL MOTION: 2 (of 4) slowed motion ORAL RESIDUE: 2 (of 4) residue collection on oral structures INITIATION OF PHARYNGEAL SWALLOW: 3 (of 4) pyriforms SOFT PALATE ELEVATION: 1 (of 4) trace column between soft palate & pharyngeal wall LARYNGEAL ELEVATION: 1 (of 3) partial superior movement / approximation ANTERIOR HYOID EXCURSION: 1 (of 2) partial movement EPIGLOTTIC MOVEMENT: 1 (of 2) partial inversion LARYNGEAL VESTIBULE CLOSURE: 1 (of 2) incomplete closure PHARYNGEAL STRIPPING WAVE: 1 (of 2) present / diminished PE SEGMENT OPENIN (of 3) partial distension / duration / obstruction TONGUE BASE RETRACTION: 3 (of 4) wide column of contrast PHARYNGEAL RESIDUE: 3 (of 4) majority of contrast remaining ESOPHAGEAL BOLUS CLEARANCE: could not view BOLUS RESIDUE SCALE (BRS): BRS SCORE: 4 (of 6) BRS SCORE DESCRIPTION: residue in valleculae and posterior pharyngeal wall or piriform sinus OBJECTIVE ASSESSMENT OF SWALLOW FUNCTION (SEVERITY GRADING): DYSPHAGIA SEVERITY RATING SCALE (DSRS): DSRS CLASSIFICATION:3 (mild-moderate) DSRS CLASSIFICATION CHARACTERISTICS: mild-moderate dysphagia?potential for aspiration exists but is diminished by specific swallow techniques and a modified diet; time for eating is significantly increased; thus supplemental nutrition may be indicated. ANALI ALS SEVERITY SCALE (ALSSS): ALSSS SCORE:6 (of 10) ALSSS SCORE DESCRIPTION: dietary consistency changes (DCC); diet is limited to soft foods NEXT ALSSS SCORE DESCRIPTION: 5 (of 10); dietary consistency changes (DCC); diet is primarily liquefied OBJECTIVE ASSESSMENT OF SWALLOW FUNCTION (QUALITATIVE): ORAL PREPARATORY PHASE: mastication inefficiency with prolonged mastication with lack of rotary mastication, initial anterior munching quality, unable to fully break down bolus prior to deglutition with solid pieces transitioned to the pharynx; impaired anterior bolus containment during oral presentation / oral manipulation with anterior bolus loss spilling past the chin during thin liquid ingestion. ORAL TRANSITIONAL PHASE: slowed bolus manipulation / transportation without discoordinated lingual movements (tremor / undulations); impaired oral clearance without side specific consolidation; intermittent premature posterior bolus loss with thin liquids PHARYNGEAL PHASE: Intermittent pharyngeal swallow dyssynchrony contributing to prandial penetration and potential aspiration events; reduced hyolaryngeal excursion and duration with inconsistent laryngeal vestibule pressure generated to expel penetrated material; significant pharyngeal dysmotility most prominently with solid textures with consolidation predominantly located within the vallecula attributed to reduced tongue based retraction, reduced posterior pharyngeal stripping wave action, and reduced epiglottic deflection, with reduced pharyngoesophageal segment relaxation contributing to consolidation within the lower pyriforms; rather mild velopharyngeal insufficiency without nasoregurgitation ESOPHAGEAL PHASE: no obvious esophageal phase abnormalities observed. CONTRIBUTING / COMPLICATING FACTORS AND NOTABLE FINDINGS: weak cued volitional cough intensity generated to expel penetrated material (dystussia). RESPONSE TO STRATEGIES: all deficits currently managed successfully with reduction in bolus rate / volume adjustments; limited benefits noted with execution of the chin tuck posture upon review. INTERVENTION RECOMMENDATIONS AND CONSIDERATIONS: The Patient requires continued skilled speech-language intervention targeting diet texture management and training / implementation of recommended compensatory strategies; training and implementation of a home oral care protocol to reduce the effects of xerostomia and improve / maintain the integrity of the oral mucosa reducing the risk of aspiration related pulmonary complications; training, implementation, and Patient / caregiver education regarding implementation of the Alonso Free Water Protocol (FFWP); Patient and caregiver education regarding dysphagia associated with amyotrophic lateral sclerosis; and Patient and caregiver training targeting meal preparation POST ASSESSMENT EDUCATION: The results and recommendations were discussed with the Patient and the Patients family immediately following MBS completion, with the Patient and the Patients family verbalizing understanding and agreement with all recommendations and education provided. We discussed factors impacting effects of aspiration, to include: the quantity of aspiration, the depth of aspiration (trachea or distal airways), and the physical properties of the aspirate. We discussed consequences of oropharyngeal dysphagia, to include pulmonary complications from tracheobronchial aspiration; potential for airway obstruction / asphyxiation; inadequate oral intake because of dysphagia; reduced liquid intake resulting in dehydration; reduced caloric intake resulting in unintentional and potentially medically complicating loss of weight; impairment in mental and physical condition to include depression and deterioration in the quality of life. higher risk for social isolation / anxiety / depression, increased disability rates, and lengthening of healing; complications in overall course of care with later discharge from acute admissions / increased length of hospitalizations, increased likelihood for discharge to custodial, and overall worse rehabilitation outcomes; and increased risk for mortality / . We discussed benefits and risks associated with alternative means of nutrition, with increased access to caloric supplementation and reduce hydration deficits, in addition to possible reduction in stress associated with mealtimes, though gastrostomy feeding does not significantly reduce aspiration risk and may lead to reduced quality of life, disrupted sleep patterns, and stoma site infections, and does not reduce the risk of aspiration related pneumonia. I provided brief overview of signs and symptoms of aspiration, with recommendations for the Patient to further discuss symptoms with the Patients primary care provider. DIET TEXTURE RECOMMENDATIONS: Will recommend a pureed textured (IDDSI: 4), thin liquid diet (IDDSI: 0) diet RECOMMENDED COMPENSATORY STRATEGIES: Consider supervision at mealtimes, consider continued execution of the chin tuck posture, reduced bolus volume / rate of ingestion, liquid chaser at reasonable intervals, no straws, seated upright at 90 degrees during PO intake, remain upright for 30-60 minutes post meal (GERD precaution), medications crushed in purees. IMAGE COUNT: [id number] Jn Ashley M.A., [employer] MACHINE, CBIS MBSImP Certified, LSVT Certified [facility] Speech-Language Pathology Department Email: [email or web address]
== END | disposition home or self-care (01) ==
LOC: RAD 13:24
PROVIDERS: PCP Nurse Practitioner Family; Referring Provider Nurse Practitioner Family; Visit Provider Nurse Practitioner Family
DX: R13.10 Dysphagia, unspecified (principal)
CPT/HCPCS: 74230; 92611

== ENCOUNTER → 2019-12-23 | Outpatient (CLI) | payer OTHER, SELFPAY ==
[2019-09-15 05:39] VITALS: BMI 26.3
[2019-12-16 09:53] VITALS: BMI 26.3
--- NOTE | 2019-12-24 07:52 | PFT ---
INTRODUCTION: The patient is a 49-year-old male that presents for pulmonary function studies secondary to a diagnosis of ALS. Respiratory therapy reports good patient effort. Bronchodilators were used during testing. INTERPRETATION: Forced expiration spirometry demonstrates the presence of a moderately severe large airways obstructive ventilatory defect, with a postbronchodilator FEV1 to FVC of 67% and an FEV1 of 50% of predicted. There was no significant response to aerosolized bronchodilators. Spirograms were of fair quality and plateau normally. Body plethysmography was performed and revealed an elevated RV to 156% of predicted, indicative of underlying air trapping. Diffusing capacity by single breath CO was reduced at 67% of predicted. IMPRESSION: Irreversible moderately severe large airways obstructive ventilatory defect with associated air trapping and reduction in diffusing capacity.
== END | disposition home or self-care (01) ==
LOC: PSN 10:53
PROVIDERS: PCP Nurse Practitioner Family; Referring Provider Internal Medicine Critical Care Medicine; Visit Provider Internal Medicine Critical Care Medicine
DX: G12.21 Amyotrophic lateral sclerosis (principal)
CPT/HCPCS: 94060; 94726; 94729

== ENCOUNTER → 2019-12-30 | Outpatient (CLI) | payer MEDICARE, OTHER, SELFPAY ==
[2019-12-16 09:53] VITALS: BMI 26.3
== END | disposition home or self-care (01) ==
LOC: SL 12:08
PROVIDERS: PCP Nurse Practitioner Family; Referring Provider Nurse Practitioner Acute Care; Visit Provider Nurse Practitioner Acute Care
DX: G12.21 Amyotrophic lateral sclerosis (principal)
CPT/HCPCS: 98960; G0463

== ENCOUNTER → 2020-01-17 | Outpatient (CLI) | payer MEDICARE, OTHER, SELFPAY ==
[2019-09-15 05:39] VITALS: BMI 26.3
[2020-01-14 09:50] VITALS: BMI 26.3
[2020-01-17 18:23] LABS: Absolute Lymphocyte Count 1.45 X10^3/uL (0.83-4.51); Basophil# 0.06 X10^3/uL; Basophil% 0.6 % (0-1); Eosinophil# 0.22 X10^3/uL; Eosinophils% 2.3 % (0-5); Hematocrit 39.9 % (40-54); Hemoglobin 11.9 g/dL (13.0-16.5); Lymphocyte # 1.45 X10^3/ul (4.0); Lymphocyte % 15.4 % (19-41); Mean Corp Hgb Conc 29.8 g/dL (32-36); Mean Corpuscular Hgb 26.1 pg (27.0-32.0); Mean Corpuscular Volume 87.5 fL (80-94); Monocyte# 0.56 X10^3/uL; Monocyte% 5.9 % (0-10); NRBC Flagged by Analyzer 0 % (0-5); Neutrophil # 6.98 X10^3/uL (2.7-7.7); Platelet Count 528 K/mm3 (150-450); RBC Distribution Width CV 14.5 % (11.6-14.6); RBC Distribution Width SD 46.6 fl (35.1-43.9); Red Blood Count 4.56 M/mm3 (4.6-6.2); White Blood Count 9.4 K/mm3 (4.4-11.0)
[2020-01-17 18:45] LABS: Hemoglobin A1c 6.7 % (3.8-5.6)
[2020-01-17 18:49] LABS: ALB/GLOB Ratio 0.6 RATIO (0.9-2.4); AST(SGOT) 20 U/L (15-37); Alanine Aminotransfer ALT/SGPT 27 U/L (16-61); Albumin, Serum 3.2 g/dL (3.2-5.0); Alkaline Phosphatase 76 U/L (45-117); Anion Gap 6 (5-15); BUN 14 mg/dL (7-18); BUN/Creat Ratio 16.4 RATIO (10-20); Calcium,Total 9.7 mg/dL (8.5-10.1); Chloride 102 mmol/L (98-107); Creatinine, Serum 0.86 mg/dL (0.70-1.30); EST Glomerular Filtration Rate 100 mL/min (>60); Est Glom Filt Rate - Afr Amer 121 mL/min (>60); Glucose 87 mg/dL (74-106); Potassium 4.3 mmol/L (3.5-5.1); Protein, Total 8.2 g/dL (6.4-8.2); Sodium Level 136 mmol/L (136-145)
== END | disposition home or self-care (01) ==
LOC: LAB.FUTURE 15:04 → MTLAB 15:06
PROVIDERS: Internal Medicine Rheumatology; PCP Nurse Practitioner Family; Referring Provider Nurse Practitioner Family; Visit Provider Nurse Practitioner Family
DX: M06.00 Rheumatoid arthritis without rheumatoid factor, unspecified site (principal); M18.0 Bilateral primary osteoarthritis of first carpometacarpal joints; G56.01 Carpal tunnel syndrome, right upper limb; M77.11 Lateral epicondylitis, right elbow; M21.40 Flat foot [pes planus] (acquired), unspecified foot; K21.9 Gastro-esophageal reflux disease without esophagitis; E11.65 Type 2 diabetes mellitus with hyperglycemia; G12.21 Amyotrophic lateral sclerosis; Z79.899 Other long term (current) drug therapy
CPT/HCPCS: 36415; 80053; 83036; 85025